=== PATIENT | female | born 1970 | race African-American/Black ===

== ENCOUNTER 2021-10-22 14:57 | Emergency (ER) | payer OTHER ==
[~2021-10-22] VITALS: Ht 157.5 cm; Wt 90.7 kg
[2021-10-22] MEDS ORDERED: TETANUS/DIPHTHERIA TOX ADULT 0.5 ML SYR IM ONE (15:15)
== END 2021-10-22 15:18 | disposition home or self-care (01) ==
LOC: ER 15:02
DX: S61.412A Laceration without foreign body of left hand, initial encounter (principal); W26.8XXA Contact with other sharp object(s), not elsewhere classified, initial encounter; Y92.89 Other specified places as the place of occurrence of the external cause; I10 Essential (primary) hypertension; J45.909 Unspecified asthma, uncomplicated
CPT/HCPCS: 90714; 99282